=== PATIENT | male | born 1975 | race American Indian/Alaskan Native ===

== ENCOUNTER 2020-03-23 06:00 | Outpatient (RCR) | payer OTHER, SELFPAY | END 2020-04-06 23:59 | disposition home or self-care (01) | LOC: TPT 06:00 | PROVIDERS: PCP Internal Medicine; Visit Provider Neurological Surgery | DX: M50.13 Cervical disc disorder with radiculopathy, cervicothoracic region (principal) | CPT/HCPCS: 97032; 97110; 97161; G0283 ==

== ENCOUNTER 2020-04-07 06:00 | Outpatient (RCR) | payer OTHER, SELFPAY | END 2020-05-07 23:59 | disposition home or self-care (01) | LOC: TPT 06:00 | PROVIDERS: PCP Internal Medicine; Visit Provider Neurological Surgery | DX: M54.12 Radiculopathy, cervical region (principal) | CPT/HCPCS: 97110; 97140; G0283 ==

== ENCOUNTER 2020-05-08 06:00 | Outpatient (RCR) | payer OTHER, SELFPAY | END 2020-06-06 23:59 | disposition home or self-care (01) | LOC: TPT 06:00 | PROVIDERS: PCP Internal Medicine; Visit Provider Neurological Surgery | DX: M54.12 Radiculopathy, cervical region (principal) | CPT/HCPCS: 97110 ==

== ENCOUNTER 2020-06-07 06:00 | Outpatient (RCR) | payer OTHER, SELFPAY | END 2020-06-08 23:00 | disposition home or self-care (01) | LOC: TPT 06:00 | PROVIDERS: PCP Internal Medicine; Visit Provider Neurological Surgery | DX: M54.12 Radiculopathy, cervical region (principal) | CPT/HCPCS: 97110 ==

== ENCOUNTER 2025-07-06 11:05 | Outpatient (CLI) | payer OTHER, SELFPAY ==
--- NOTE | 2025-07-06 11:18 | XR_ITS ---
WS: [id number] Thoracic spine, 2 views, 07/06/2025 Clinical Data: ARTHRITIS AND HYPOTHYRIODISM Comparison: None. Findings: No compression fractures are seen. The disc heights are normal. There is a slight levoscoliosis of the upper thoracic spine. The paravertebral regions are normal. There is mild osteoarthritis of the midthoracic vertebral bodies. XR/XR thoracic spine 2V [id number] Impression: Levoscoliosis of the upper thoracic spine with minimal osteoarthritis.
--- NOTE | 2025-07-06 11:18 | XR_ITS ---
WS: [email or web address] Lumbar spine, 3 views, 07/06/2025 Clinical Data: ARTHRITIS AND HYPOTHYRIODISM Comparison: None. Findings: No compression fractures or subluxation is seen. There is degenerative disc narrowing at L4-L5 and L5-S1. The transverse processes and SI joints are normal. XR/XR lumbar spine 2-3V* [id number] Impression: Disc narrowing at L4-L5 and L5-S1.
--- NOTE | 2025-07-06 11:18 | XR_ITS ---
WS: [email or web address] Left knee, 3 views, 07/06/2025 Clinical Data: ARTHRITIS AND HYPOTHYRIODISM Comparison: None. Findings: No fractures or dislocations are seen. The joint spaces are normal. The patella is intact. The soft tissues are unremarkable. XR/XR knee LT 3V* [id number] Impression: Negative left knee.
--- NOTE | 2025-07-06 11:18 | XR_ITS ---
WS: [email or web address] Cervical spine, 3 views, 07/06/2025 Clinical Data: ARTHRITIS AND HYPOTHYRIODISM Comparison: None. Findings: No compression fractures are seen. The disc heights are normal. There is no prevertebral soft tissue swelling. The odontoid is unremarkable. The soft tissues of the neck and the lung apices are normal. XR/XR cervical spine 3V* [id number] Impression: Negative cervical spine.
--- NOTE | 2025-07-06 11:18 | XR_ITS ---
WS: [email or web address] Right knee, 3 views, 07/06/2025 Clinical Data: ARTHRITIS AND HYPOTHYRIODISM Comparison: None. Findings: No fractures or dislocations are seen. The joint spaces are normal. The patella is intact. The soft tissues are unremarkable. XR/XR knee RT 3V* [id number] Impression: Negative right knee.
[2025-07-06 12:48] LABS: Thyroid Stimulating Hormone 2.83 uIU/mL (0.27-4.20)
== END 2025-07-06 11:06 | disposition home or self-care (01) ==
LOC: LAB 11:10
PROVIDERS: PCP Internal Medicine; Visit Provider Chiropractor
DX: M19.90 Unspecified osteoarthritis, unspecified site (principal); E03.9 Hypothyroidism, unspecified; M47.814 Spondylosis without myelopathy or radiculopathy, thoracic region; M41.9 Scoliosis, unspecified
CPT/HCPCS: 36415; 72040; 72070; 72100; 73562; 84443; 84480; 84481